=== PATIENT | female | born 1970 | race Caucasian/White ===

== ENCOUNTER 2016-12-06 11:45 | Day surgery (SDC) | payer MEDICARE, MEDICAID ==
[~2016-12-06 11:45] MED LIST: CALCITRIOL0.25 MC1 PO; CALCIUM CARBON600 M2 PO; CLARITIN10 M6 PO; CYCLOBENZAPRINE10 M1 PO; CYTOMEL5 MC1 PO; DIFLUCAN100 M1 PO; EFFEXOR XR75 M1 PO; ELMIRON100 M1 PO; GLUCOPHAGE500 M3 PO; IMITREX100 M2 PO; NASONEX17 G1; NEXIUM40 M1 PO; PROPRANOLOL HCL40 M2 PO; SYNTHROID125 MC1 PO; TRAMADOL HCL50 M2 PO; VITAMIN D31000 UNI3 PO
[2016-12-06 12:56] LABS: BASO % 0.3 % (0-2); EOS % 3.4 % (0-7); EOSINOPHIL ABSOLUTE COUNT 0.3 tho/cmm (0.0-0.7); HCT-HEMATOCRIT 37.4 % (34.0-49.0); HGB-HEMOGLOBIN 12.2 gm/dl (12.0-15.5); LYMPH % 33.1 % (20-45); LYMPH ABSOLUTE COUNT 2.4 tho/cmm (0.8-4.5); MCH (MEAN CORPUSCULAR HGB) 27.1 pg (28.0-32.0); MCHC MEAN CORPUSCULAR HGB CONC 32.6 % (32.0-36.0); MCV (MEAN CELL VOLUME) 82.9 fl (82.0-96.0); MEAN PLATELET VOLUME 9.5 cmc (9.4-12.4); MONO % 6.6 % (0-12); MONOCYTE ABSOLUTE COUNT 0.5 tho/cmm (0.0-1.2); NEUTROPHIL ABSOLUTE COUNT 4.1 tho/cmm (1.6-8.0); NEUTROPHIL-AUTOMATED 4.1 tho/cmm (1.6-8.0); NEUTROPHILS % 56.6 % (40-80); PLATELET COUNT 331 tho/cmm (150-450); RED BLOOD COUNT 4.51 mil/cmm (4.00-5.20); RED CELL DISTRIBUTION WIDTH 14.2 % (12.4-16.4); WHITE BLOOD COUNT 7.3 tho/cmm (4.0-10.0)
[2016-12-06 13:01] LABS: ANION GAP 14 mmol/L (0-20); BLOOD UREA NITROGEN 17 mg/dl (6-24); CALCIUM 8.9 mg/dl (8.5-10.5); CARBON DIOXIDE-VENOUS 28 mmol/L (22-32); CHLORIDE 101 mmol/l (96-110); CREATININE 1.13 mg/dl (0.50-1.10); GLUCOSE 87 mg/dL (70-110); POTASSIUM 4.2 mmol/L (3.7-5.1); SODIUM 139 mmol/L (135-145); eGFR VALUE FOR BLACK 67 mL/Min
== END 2016-12-06 16:06 ==
LOC: SHSC 11:45 → ENDOS 14:05
PROVIDERS: Anesthesiology
PROC: 0DB88ZX Excision of Small Intestine, Via Natural or Artificial Opening Endoscopic, Diagnostic (ICD-10-PCS; principal; 2016-12-06)
PROC: 0DB28ZX Excision of Middle Esophagus, Via Natural or Artificial Opening Endoscopic, Diagnostic (ICD-10-PCS; 2016-12-06)
PROC: 0DB68ZX Excision of Stomach, Via Natural or Artificial Opening Endoscopic, Diagnostic (ICD-10-PCS; 2016-12-06)
DX: K29.00 Acute gastritis without bleeding (principal); K29.50 Unspecified chronic gastritis without bleeding; E11.9 Type 2 diabetes mellitus without complications; F41.9 Anxiety disorder, unspecified; E03.9 Hypothyroidism, unspecified; Z98.890 Other specified postprocedural states; Z88.6 Allergy status to analgesic agent; Z88.0 Allergy status to penicillin; Z88.2 Allergy status to sulfonamides; Z88.8 Allergy status to other drugs, medicaments and biological substances; Z79.899 Other long term (current) drug therapy